=== PATIENT | female | born 1975 | race Caucasian/White ===

== ENCOUNTER 2024-08-10 12:30 | Outpatient (RCR) | payer BC, SELFPAY | END 2024-12-08 23:59 | disposition home or self-care (01) | PROVIDERS: PCP Family Medicine; Visit Provider Physician Assistant | DX: M20.011 Mallet finger of right finger(s) (principal); M79.89 Other specified soft tissue disorders; Z51.89 Encounter for other specified aftercare | CPT/HCPCS: 97035; 97110; 97140; 97165; 97535; X5282 ==